=== PATIENT | male | born 1955 | race Caucasian/White ===

== ENCOUNTER 2022-02-20 14:51 | Emergency (ER) | payer MEDICARE ==
[2022-02-20 17:55] LABS: BASOPHIL 0.9 % (0-2); EOSINOPHIL 9.6 % (0-7); HCT 44.2 % (42.0-52.0); HGB 14.5 g/dl (13.2-18.0); LYMPHOCYTE 7.7 % (15-48); MCHC 32.8 g/dL (32.0-36.0); MCV 91.3 fL (78.0-100.0); MONOCYTE 7.4 % (0-12); NEUTROPHIL 72.7 % (41-80); NRBC 0; PLT 243 K/uL (150-400); RBC 4.84 M/uL (4.70-6.00); RDW 13.6 % (11.5-14.0); WBC 14.9 K/uL (4.0-10.5)
[2022-02-20 18:14] LABS: ALBUMIN 3.6 g/dL (3.4-5.0); BILIRUBIN - TOTAL 0.4 mg/dL (0.2-1.0); BUN/CREAT RATIO (CALC) 13.6 RATIO; CREATININE 1.4 mg/dL (0.67-1.17); GLOBULIN (CALCULATION) 4.2 g/dL; POTASSIUM 4.5 mmol/L (3.5-5.1); TOTAL PROTEIN 7.8 g/dL (6.4-8.2)
[2022-02-20 18:16] LABS: LACTIC ACID 0.8 mmol/L (0.4-1.9)
[2022-02-20 19:44] LABS: BILIRUBIN NEGATIVE (NEGATIVE); BLOOD NEGATIVE Ery/uL (NEGATIVE); CLARITY CLEAR (CLEAR); COLOR YELLOW (YELLOW); GLUCOSE (U) NORMAL (NORMAL); LEUKOCYTES NEGATIVE Leu/uL (NEGATIVE); NITRITE NEGATIVE (NEGATIVE); PROTEIN NEGATIVE (NEGATIVE); SPECIFIC GRAVITY 1.015 (1.001-1.030); UROBILINOGEN 0.2 mg/dL (0.2-1.0); pH 6.5 (5.0-9.0)
[2022-02-20 19:51] LABS: SQUAMOUS EPITHELIAL CELLS RARE; URINARY WBC RARE
== END 2022-02-20 20:55 | disposition home or self-care (01) ==
LOC: FER 14:51
PROVIDERS: Physician Assistant
DX: S39.011A Strain of muscle, fascia and tendon of abdomen, initial encounter (principal); D72.829 Elevated white blood cell count, unspecified; N28.9 Disorder of kidney and ureter, unspecified; E11.9 Type 2 diabetes mellitus without complications; I48.91 Unspecified atrial fibrillation; Z91.041 Radiographic dye allergy status; Z87.891 Personal history of nicotine dependence; Z79.01 Long term (current) use of anticoagulants; Z79.84 Long term (current) use of oral hypoglycemic drugs
CPT/HCPCS: 36415; 80053; 81001; 83605; 85025; J2270; J2405; J7050